=== PATIENT | male | born 1965 | race Caucasian/White ===

== ENCOUNTER 2023-07-27 22:22 | Emergency (ER) | payer SELFPAY ==
[2023-07-27 22:36] VITALS: TEMP 99.4; BMI 27.4
[2023-07-27] MEDS ORDERED: SODIUM CHLORIDE 0.9% 500 ML INFUS.BAG IV ONE (23:14)
[2023-07-27] MEDS ORDERED: ACETAMINOPHEN 1000 MG/100 ML BAG IVPB ONE (23:14)
[2023-07-27] MEDS ORDERED: ONDANSETRON 4 MG/2 ML VIAL IVPUSH ONE (23:19)
[2023-07-27] MEDS ORDERED: ACETAMINOPHEN INJECTION 100 ML IVPB ONE (23:29)
[2023-07-27 23:35] LABS: BASO % 0.6 % (0-2.0); EOS % 0.5 % (0-4.5); HEMATOCRIT 44.3 % (35.4-49); HEMOGLOBIN 15.3 GM/dL (11.7-16.9); LYMPH % 28.3 % (8-40); MCH 31.3 pg (25.7-33.7); MCHC 34.4 g/dl (32.0-35.9); MEAN CELL VOLUME 90.8 fl (80-96); MEAN PLT VOLUME 8.2 fl (7.5-11.1); MONO % 10.4 % (3.8-10.2); NEUT % 60.2 % (42.8-82.8); PLATELET COUNT 156 10^3/uL (134-434); RBC 4.88 M/mm3 (4.00-5.60); RDW 13.7 % (11.9-15.9); WHITE BLOOD COUNT 4.5 K/mm3 (4.0-10.0)
[2023-07-27] MEDS ORDERED: ONDANSETRON 4 MG/2 ML VIAL ONE (23:39)
[2023-07-28 00:24] LABS: POTASSIUM 4.1 mmol/L (3.5-5.1)
[2023-07-28 00:26] LABS: CALCIUM 8.2 mg/dL (8.5-10.1)
[2023-07-28 00:27] LABS: ALBUMIN 3.6 g/dl (3.4-5.0); BLOOD UREA NITROGEN 10.5 mg/dL (7-18)
[2023-07-28 00:30] LABS: CREATININE 1.1 mg/dL (0.55-1.3)
[2023-07-28 00:31] LABS: TOT PROT 7.4 g/dl (6.4-8.2)
[2023-07-28 00:32] LABS: BILIRUBIN,TOTAL 0.4 mg/dL (0.2-1)
[2023-07-28 01:36] VITALS: BP 135/70; PULSE 80; RESP 19
== END 2023-07-28 01:37 | disposition home or self-care (01) ==
LOC: JER 22:22
PROC: 3E033NZ Introduction of Analgesics, Hypnotics, Sedatives into Peripheral Vein, Percutaneous Approach (ICD-10-PCS; principal; 2023-07-27)
PROC: 3E033GC Introduction of Other Therapeutic Substance into Peripheral Vein, Percutaneous Approach (ICD-10-PCS; 2023-07-27)
DX: J10.1 Influenza due to other identified influenza virus with other respiratory manifestations (principal); R42 Dizziness and giddiness; R05.9 Cough, unspecified; R11.0 Nausea; R50.9 Fever, unspecified; R09.81 Nasal congestion; R63.8 Other symptoms and signs concerning food and fluid intake; R07.89 Other chest pain; Z20.822 Contact with and (suspected) exposure to COVID-19
CPT/HCPCS: 0241U-QW; 36415; 71046-TC-FY; 80053; 84484; 85025; 93005; 93010; 99284-25